=== PATIENT | female | born 1985 | race Hispanic/Latino ===

== ENCOUNTER → 2023-11-03 08:10 | Outpatient (REF) | payer OTHER, SELFPAY ==
[2023-11-03 08:50] LABS: % Basophils 0.4 % (0-2); % Eosinophils 1.3 % (0-6); % Immature Granulocytes 0.3 % (0-0.5); % Lymphocytes 34.9 % (20.5-51.1); % Monocytes 5.7 % (1.7-9.3); % Neutrophils 57.4 % (42.2-75.2); Absolute Eosinophils 0.1 10^3/uL (0-0.7); Absolute Lymphocytes 2.5 10^3/uL (1.2-3.4); Absolute Monocytes 0.4 10^3/uL (0.1-0.6); Absolute Neutrophils 4.1 10^3/uL (1.4-6.5); Hematocrit 38.4 % (37.0-47.0); Hemoglobin 13.4 g/dL (12.0-16.0); Mean Corp Hgb Conc. 34.9 g/dL (33.0-37.0); Mean Corpuscular Hgb 29.4 pg (27.0-31.0); Mean Corpuscular Volume 84.2 fL (81.0-99.0); Mean Platelet Volume 9.7 fL (7.4-10.4); Nucleated Red Blood Cells % 0 %; Platelet Count 325 10^3/uL (130-400); Red Blood Cell Count 4.56 10^6/uL (4.20-5.40); White Blood Cell Count 7.1 10^3/uL (4.8-10.8)
[2023-11-03 09:08] LABS: Erythrocyte Sed Rate 18 mm/hour (0-20)
[2023-11-03 09:39] LABS: ALT (SGPT) 18 U/L (0-35); AST (SGOT) 21 U/L (14-36); Albumin 3.9 g/dl (3.5-5.0); Alkaline Phosphatase 70 U/L (38-126); Blood Urea Nitrogen 11 mg/dl (7-17); Calcium 8.7 mg/dl (8.4-10.2); Carbon Dioxide 20 mmol/L (22-30); Chloride 109 mmol/L (98-107); Glucose 97 mg/dl (70-99); Potassium 3.9 mmol/L (3.5-5.1); Sodium 137 mmol/L (135-145); Total Bilirubin 0.8 mg/dl (0.2-1.3); Total Protein 6.6 g/dl (6.3-8.2); eGFR > 60.00
[2023-11-03 09:50] LABS: LDL Cholesterol, Direct 139 mg/dl
[2023-11-03 11:47] LABS: Glycohemoglobin (HgbA1c) 5.5 % (4.0-5.6)
== END ==
LOC: CLINIC 08:10
PROVIDERS: ATTENDING PHYSICIAN Internal Medicine
DX: Z00.00 Encounter for general adult medical examination without abnormal findings (principal)
CPT/HCPCS: 36415; 80053; 83036; 83721; 85025; 85652

== ENCOUNTER 2023-12-08 20:35 | Emergency (ER) | payer SELFPAY ==
[2023-12-08 20:39] VITALS: BP 111/76
--- NOTE | 2023-12-08 20:48 | ED.MUSCINJ ---
HPI-Injury
General
Chief Complaint: Musculo-Skeletal Complaint
Source: patient and family
Exam Limitations: none
Time Seen by Provider: 12/08/23 20:43
Nursing documentation reviewed up to this point in time: agreed with
History of Present Illness-Injury
Is this injury a work related problem?: No
Is pt an associate of [facility]/[place]?: No
Initial Injury comments:
38-year-old female inversion injury to left ankle prior to arrival she was carrying a box of bottled garcia slipped and injured her ankle mild pain trouble walking
Past History
Past History
ED Past Surgical History:
Social History
Tobacco: Non-smoker
Alcohol: None
Drug: None
Personal:
Living: with family
Review of Systems
Review of Systems
All Other Systems: Not applicable
Musculoskeletal: Reports joint pain
Phy Exam
Physical Exam
Physical Exam:
Physical Exam
General: no apparent distress, not acutely ill
Neck: No tongue bite no posterior neck pain
Heart: s1/s2 regular rate and rhythm, no murmur. equal radial pulses.
Lungs: no acute respiratory distress. clear bilaterally
Neuro: alert and oriented. no focal neurological deficits
Skin: no rash
Psychiatric: cooperative
Extremities: Tender at the left lateral malleolus base of the fifth nontender fibular head nontender Achilles with
Injury Course
Orders/Labs/Results
Orders:
Orders
12/08/23 20:47
Ibuprofen [Motrin] 600 mg PO NOW STA
Ankle, left 3 view CR [CR Ankle - Left Min 3 Views ] Urgent
Comment:
Reason For Exam: fall
12/08/23 20:50
Air Splint Left-Treatment ONCE
MDM/Problems Addressed
Differential Diagnosis Includes:
Sprain strain contusion fracture
MDM/Problems Addressed:
Ankle pain
*Radiology
Radiology exam reviewed: preliminary read by ED provider
*Critical Care Note
Total Time (30-74mins, 75-104mins- exclusive of procedures): Not Applicable
Update Note
Update Note:
xray noted
splinted by RN
ED Attending Note
-
Portions of this chart may have been created with voice recognition software.� Occasional wrong word or��sound alike� substitutions may have occurred due to the inherent limitations of voice recognition software.
Discharge Plan
Departure
Patient Disposition: Home (Routine Discharge)
Date of Disposition: 12/08/23
Time of Disposition: 21:33
Patient with high blood pressure during this ER visit?: No
Condition: Good
Discharge Problem:
Ankle sprain
Instructions: Sprain (DC), Ibuprofen
Prescriptions:
New
ibuprofen 600 mg tablet
600 mg PO Q6H PRN (Reason: Pain) Qty: 20 0RF
Referrals:
Leslie Pittman PLY BANDER [Family Provider] - Follow up in 5-7 days
Interventions
Interventions:
*Risk Screen - Suicide Last Done: 12/08/23 20:59
*General Assessment Last Done: 12/08/23 20:59
*Neglect/Abuse Screening Last Done: 12/08/23 20:59
*ED COVID-19 Vaccine History Last Done: 12/08/23 20:59
ED-Musculoskeletal Assessment Last Done: 12/08/23 21:05
Discharge Date and Time
Print Language: PALESTINIAN
[2023-12-08] MEDS: MOTRIN 600 MG PO (20:58)
[2023-12-08 22:41] VITALS: BP 106/68
== END 2023-12-08 22:42 | disposition home or self-care (01) ==
LOC: EMR 20:35
PROVIDERS: EMERGENCY PHYSICIAN Emergency Medicine; FAMILY PHYSICIAN Nurse Practitioner Adult Health
DX: S93.402A Sprain of unspecified ligament of left ankle, initial encounter (principal); W19.XXXA Unspecified fall, initial encounter
CPT/HCPCS: 99283; 73610

== ENCOUNTER 2024-02-09 10:29 | Emergency (ER) | payer SELFPAY ==
[2024-02-09 10:38] VITALS: BP 118/70
[2024-02-09] MEDS: DILAUDID 0.5 MG IV ×2 (12:13→13:58)
[2024-02-09 12:17] LABS: % Basophils 0.2 % (0-2); % Eosinophils 0.5 % (0-6); % Immature Granulocytes 0.5 % (0-0.5); % Neutrophils 77.8 % (42.2-75.2); Absolute Eosinophils 0.1 10^3/uL (0-0.7); Absolute Immature Granulocytes 0.1 10^3/uL (0-0.05); Absolute Lymphocytes 1.9 10^3/uL (1.2-3.4); Absolute Monocytes 0.8 10^3/uL (0.1-0.6); Absolute Neutrophils 9.9 10^3/uL (1.4-6.5); Hematocrit 36.5 % (37.0-47.0); Hemoglobin 12.5 g/dL (12.0-16.0); Mean Corp Hgb Conc. 34.2 g/dL (33.0-37.0); Mean Corpuscular Hgb 28.3 pg (27.0-31.0); Mean Corpuscular Volume 82.6 fL (81.0-99.0); Mean Platelet Volume 9.5 fL (7.4-10.4); Nucleated Red Blood Cells % 0 %; Platelet Count 336 10^3/uL (130-400); Red Blood Cell Count 4.42 10^6/uL (4.20-5.40); Red Cell Dist. Width 12.5 % (11.5-14.5); White Blood Cell Count 12.7 10^3/uL (4.8-10.8)
[2024-02-09 12:32] LABS: ALT (SGPT) 17 U/L (0-35); AST (SGOT) 19 U/L (14-36); Albumin 3.8 g/dl (3.5-5.0); Alkaline Phosphatase 72 U/L (38-126); Blood Urea Nitrogen 11 mg/dl (7-17); Calcium 8.5 mg/dl (8.4-10.2); Carbon Dioxide 28 mmol/L (22-30); Chloride 103 mmol/L (98-107); Glucose 101 mg/dl (70-99); Potassium 3.4 mmol/L (3.5-5.1); Sodium 141 mmol/L (135-145); Total Bilirubin 0.6 mg/dl (0.2-1.3); Total Protein 6.5 g/dl (6.3-8.2); eGFR > 60.00
--- NOTE | 2024-02-09 14:28 | ED.GENMED ---
History of Present Illness
General
Chief Complaint: Anal/Rectal Problem
Time Seen by Provider: 02/09/24 11:21
History of Present Illness
History of Present Illness:
38-year-old female presents the emergency department for evaluation of right gluteal pain that has been ongoing for the past 1 to 2 weeks. She is unable to sit due to pain. She feels as though this could be due to hemorrhoids. No fevers or chills
Past History
Past History
ED Past Surgical History:
Social History
Tobacco: Non-smoker
Alcohol: None
Drug: None
Personal:
Living: with family
Review of Systems
Review of Systems
Allergies reviewed?: Yes
All Other Systems: ROS reviewed and negative except as documented in HPI and ROS
Phy Exam
Physical Exam
Physical Exam:
GEN: Well appearing, NAD, WDWN
HEENT: Oral mucosa moist, no scleral icterus
Cardiac: Regular rate
Lung: No respiratory distress, no tachypnea
Rectal: Right inferior medial gluteal abscess, perianal
MSK: No gross deformity or injuries
Skin: Good color, no pallor or jaundice, no rashes
Neuro: AO x3, moves all extremities freely
Psych: Calm, cooperative
Course
Orders/Labs/Results
Orders:
Orders
02/09/24 11:[address] Pelvis With Iv Contrast Urgent
Comment:
Reason For Exam: perianal abscess
HYDROmorphone [Dilaudid] 0.5 mg IV NOW STA
02/09/24 12:08
CBC/With Diff [Complete Blood Count/With Diff] Urgent
CMP [Comprehensive Metabolic Panel] Urgent
02/09/24 13:54
HYDROmorphone [Dilaudid] 0.5 mg IV NOW STA
Abnormal Lab Results
02/09/24
12:08
WBC 12.7 H 10^3/uL
(4.8-10.8)
Hct 36.5 L %
(37.0-47.0)
Abs Immat Gran (auto) 0.1 H 10^3/uL
(0-0.05)
Absolute Neuts (auto) 9.9 H 10^3/uL
(1.4-6.5)
Absolute Monos (auto) 0.8 H 10^3/uL
(0.1-0.6)
Neutrophils % 77.8 H %
(42.2-75.2)
Lymphocytes % 15.0 L %
(20.5-51.1)
Potassium 3.4 L mmol/L
(3.5-5.1)
Glucose 101 H mg/dl
(70-99)
02/09/24 12:08
02/09/24 12:08
Vital Signs
Initial and Last Documented VS:
Initial Vital Signs
Temp Pulse Resp BP Pulse Ox
98.6 F 105 16 118/70 100
02/09/24 10:38 02/09/24 10:38 02/09/24 10:38 02/09/24 10:38 02/09/24 10:38
Last Documented Vital Signs
Temp Pulse Resp BP Pulse Ox
98.6 F 98 14 118/74 99
02/09/24 10:38 02/09/24 14:36 02/09/24 14:36 02/09/24 14:36 02/09/24 14:36
Procedures
Incision/Drainage/Joint Aspiration
Perianal:
Anethesia: 1% Lidocaine with Epi
Preparation: cleaned with alcohol wipe
Type of procedure: incise and drain
Nature of site: abscess
Description of abscess: greater than 3cm
Loculations broken up: Yes
How much fluid was obtained?: large amount
Fluid description: purulent and bloody
Treatment: left open for drainage
MDM/Problems Addressed
MDM/Problems Addressed:
Moderate-sized perianal abscess drained at the bedside after imaging. Will discharge on antibiotics, recommend follow-up with the [facility] for wound check next week
*Critical Care Note
Total Time (30-74mins, 75-104mins- exclusive of procedures): Not Applicable
ED Attending Note
-
Portions of this chart may have been created with voice recognition software.� Occasional wrong word or��sound alike� substitutions may have occurred due to the inherent limitations of voice recognition software.
Discharge Plan
Departure
Patient Disposition: Home (Routine Discharge)
Date of Disposition: 02/09/24
Time of Disposition: 14:28
Patient with high blood pressure during this ER visit?: No
Discharge Problem:
Abscess, perianal
Instructions: Anal Abscess and Fistula, Adult (DC)
Prescriptions:
New
sulfamethoxazole-trimethoprim [Bactrim DS] 800-160 mg tablet
1 tab PO Q12H Qty: 14 0RF
No Action
ibuprofen 600 mg tablet
600 mg PO Q6H PRN (Reason: Pain) Qty: 20 0RF
Referrals:
NONE,* [Family Provider] -
Activity Restrictions/Additional Instructions:
Aplique kike almohadilla t�rmica sobre el vendaje dos veces al d�a para aumentar el drenaje. Cambie el vendaje diariamente o despu�s de cualquier evacuaci�n intestinal. Usted puede ducharse y el �susy puede mojarse. Cristel los antibi�ticos. Annalise un
seguimiento con la cl�renny Brenna Hernando la pr�xima semana para un control de heridas.
Interventions
Interventions:
*Risk Screen - Suicide Last Done: 02/09/24 10:38
*Neglect/Abuse Screening Last Done: 02/09/24 10:38
*Nursing Disposition Last Done: 02/09/24 14:38
ED-Skin Assessment Last Done: 02/09/24 13:26
Discharge Date and Time
Discharge Date/Time: 02/09/24 14:38
Print Language: ARABIC
[2024-02-09 14:36] VITALS: BP 118/74
== END 2024-02-09 14:38 | disposition home or self-care (01) ==
LOC: EMR 10:29
PROVIDERS: Physician Assistant; EMERGENCY PHYSICIAN Emergency Medicine
DX: K61.0 Anal abscess (principal)
CPT/HCPCS: 99284; 96374; 96376; 10060; 72193; 80053; 85025; Q9967